=== PATIENT | female | born 1975 | race Caucasian/White ===

== ENCOUNTER → 2020-06-25 11:42 | Outpatient (CLI) | payer OTHER, SELFPAY ==
[2020-06-26 08:48] LABS: COVID19 Sendout Not Detected (Not Detect)
== END ==
PROVIDERS: PCP Family Medicine; Visit Provider Physician Assistant
DX: Z11.59 Encounter for screening for other viral diseases (principal)
CPT/HCPCS: 87635

== ENCOUNTER → 2020-06-27 08:20 | Outpatient (CLI) | payer OTHER, SELFPAY ==
--- NOTE | 2020-06-27 14:35 | PM.TREADMILL ---
Cardiac Stress Test Report Referral & Results Date Patient Seen: 06/27/20 Requesting provider: Lukasz Burgos Indication: Dyspnea Rest ECG: Biphasic T-waves throughout Procedure Note: Today following both written and verbal informed consent the patient was exercised according to a standard Librado protocol patient went for a total of 4 minutes 17 seconds achieving a maximum heart rate of 140 maximum systolic blood pressure of 136. This is approximately 7.0 METS. Exercise was terminated at this point because of patient's inability to continue. She became quite stridorous during the last 2 minutes of exercise although oxygen saturation remained at 100% on her blood pressure did not spike with this. She rapidly resolve this stridor within 30-60 seconds of exercise cessation. There is no wheezing or other feature to it. Patient was also given Cardiolite through a previously started Hep-Lock IV by the diagnostic imaging staff approximately 1 minute prior to the cessation of exercise. There is nonspecific drooping of the T-waves in the far lateral leads as well as inferior leads with exercise that I consider to be an exacerbation of the baseline biphasic T-wave change. Otherwise no ST-T segment changes no evidence of ischemia Function aerobic impairment rated 35% and sedentary scale Rare PAC in recovery only Impression: No clear evidence of ischemia. Please see perfusion imaging report for further details Patient's symptoms that she had during exercise seems extraordinarily out of proportion to objective findings such as blood pressure oxygen saturation etcetera. I would seriously consider psychological source of symptoms as a contributing factor to her overall presentation. Please note: Actual ECG tracings can be found in the PACS system.
--- NOTE | 2020-06-27 18:50 | DI.NM.S_ITS ---
DATE OF SERVICE: PROCEDURE: Exercise perfusion study. INDICATIONS: Chest pain, palpitation, shortness of breath. RADIOPHARMACEUTICAL: 26.0 millicurie technetium-99m Myoview IV was injected at stress and 14.3 millicurie technetium-99m Myoview IV was injected at rest. CARDIAC STRESS: The patient underwent exercise perfusion study under the supervision of an attending staff. She walked on Librado protocol for 4 minutes 17 seconds and became significantly dyspneic with stridor. She felt chest discomfort. On a scale of 1-10, it was 4-5 in intensity. It got resolved in recovery. Her oxygen saturation was not low. There was normal blood pressure response. The patient achieved 83 percent of target heart rate. Baseline EKG revealed sinus rhythm with biphasic T-wave in inferior leads and lead V3 to V6. During stress, the patient developed 1-[address]-depression in those leads and recovered within 2 minutes in recovery. No significant sustained arrhythmias seen. RAW DATA: Breast shadow was seen. Her weight is 210 pounds. GATED STUDY: Stress LV ejection fraction 70 percent without any obvious wall motion abnormalities. TID ratio is 0.95, which is within normal limits. Resting end-diastolic volume 109 mL. Lung/heart ratio 0.32, which is within normal limits. MYOCARDIAL PERFUSION: Stress supine, resting supine and stress prone images were compared to each other. Stress supine images revealed a small size, mildly decreased perfusion of anterior wall. Resting supine images reveal mildly decreased perfusion of distal anterior wall and anterior apex. During prone images, there was significant improvement in anterior wall and anterior apical perfusion defect. No convincing perfusion defect seen in the stress prone images. CONCLUSION: I will call this study likely a normal myocardial perfusion study with evidence of breast tissue attenuation artifact which got resolved during the stress prone images. Left ventricular function is preserved. She felt significantly dyspneic with stridor. She also had chest discomfort, which got resolved in recovery. She has poor exercise tolerance. Baseline EKG abnormalities, as stated above. No significant arrhythmias during exercise. As far as perfusion scan is concerned, this is a low-risk myocardial perfusion scan. As patient had stridor during exercise, consider complete pulmonary evaluation including upper respiratory tract evaluation. Verito Squires - Jennifer/ric doc#: [id number]/job#: [id number] dd: 06/27/2020 16:47:00 dt: 06/27/2020 18:41:00 DICTATING MD/COPIES TO: Alfredito Amador MD COPIES MNE: SUSAN;
== END ==
PROVIDERS: PCP Family Medicine; Referring Provider Family Medicine; Visit Provider Family Medicine
DX: R07.89 Other chest pain (principal); R00.2 Palpitations; R06.02 Shortness of breath; R06.00 Dyspnea, unspecified; Z87.898 Personal history of other specified conditions
CPT/HCPCS: 78452; 93016; 93017; 93018; A9502

== ENCOUNTER → 2020-09-05 10:41 | Outpatient (CLI) | payer OTHER, SELFPAY ==
--- NOTE | 2020-09-05 10:43 | DI.US.S_ITS ---
PROCEDURE: US THYROID INDICATIONS: NONTOXIC GOITER, UNSPECIFIED TECHNIQUE: Real-time scanning was performed of the thyroid gland, with image documentation. COMPARISON: None. FINDINGS: Right: Thyroid lobe measures 6.2 x 1.9 x 2.1 cm, and is diffusely heterogeneous in echotexture. Left: Thyroid lobe measures 6.1 x 3.2 x 4.4 cm, and is diffusely heterogeneous in echotexture. Isthmus: 6.0 mm thick. Nodule number: 1 Location: Right superior Size: 0.7 x 0.5 x 0.4 cm. Composition: Predominantly solid Echogenicity: Isoechoic Shape: wider than tall. Margins: Smooth Echogenic foci: None Total points: 3 ACR TI-RADS category: Mildly suspicious Nodule number: 2 Location: Right superior Size: 0.6 x 0.4 x 0.4 cm. Composition: Solid Echogenicity: Hypoechoic Shape: wider than tall. Margins: Smooth Echogenic foci: Not requested. Total points: 4 ACR TI-RADS category: Moderately suspicious Nodule number: 3 Location: Left upper Size: 1.2 x 0.8 x 1.4 cm. Composition: Solid Echogenicity: Isoechoic Shape: wider than tall. Margins: Smooth Echogenic foci: None Total points: 3 ACR TI-RADS category: Mildly suspicious Nodule number: 4 Location: Left mid to inferior Size: 4.3 x 2.8 x 3.9 cm. Composition: Predominantly solid Echogenicity: Heterogeneous Shape: wider than tall. Margins: Lobulated Echogenic foci: Internal punctate echogenic foci Total points: 7 ACR TI-RADS category: Highly suspicious IMPRESSION: Bilateral thyroid nodules. Recommend sonographically directed fine-needle aspiration involving the left #4 nodule and continued sonographic surveillance. ACR TI-RADS definitions and recommendations: TI-RADS 1 (benign): 0 points. FNA not needed. TI-RADS 2 (not suspicious): 2 points. FNA not needed. TI-RADS 3 (mildly suspicious): 3 points. * FNA if 2.5 cm or larger, follow up if 1.5 cm or larger (at 1, 3, and 5 years). TI-RADS 4 (moderately suspicious): 4-6 points. * FNA if 1.5 cm or larger, follow up if 1 cm or larger (at 1, 2, 3, and 5 years). TI-RADS 5 (highly suspicious): 7 points or more. * FNA if 1 cm or larger, follow up if 0.5 cm or larger (every year for 5 years). Dictated by: Bobby LUDWIG Interpreted: Jefry Avila MD on 09/05/2020 at 11:38 Approved by: Jefry Avila M.D. on 09/05/2020 at 13:59
== END ==
PROVIDERS: PCP Family Medicine; Referring Provider Otolaryngology; Visit Provider Otolaryngology
DX: E04.2 Nontoxic multinodular goiter (principal)
CPT/HCPCS: 76536

== ENCOUNTER → 2020-09-16 08:12 | Outpatient (CLI) | payer OTHER, SELFPAY ==
--- NOTE | 2020-09-16 | PATH_ITS ---
Note [facility] Accession Number: [id number] TESTS RESULT FLAG UNITS REF RANGE LAB Clinician Provided Cytology Information No. of containers..00 Previously Prepared Cytology Slide 35 Unknown Storage/container code(s) 01 LEFT THYROID NODULE Clinician ICD10: E04.1 R04.9 DIAGNOSIS: 01 LEFT THYROID NODULE NEGATIVE FOR MALIGNANT CELLS. B[place]ESDA CATEGORY II. SPECIMEN CONSISTS OF A HETEROGENEOUS LYMPHOID POPULATION, HURTHLE CELLS, AND FOLLICULAR CENTER FRAGMENTS. THIS PATTERN IS CONSISTENT WITH A CHRONIC LYMPHOCYTIC THYROIDITIS. COMMENT: Cutting Inspector slides of this case are also reviewed by Dr. Keli Lomax who concurs with the given interpretation. Pathologist ICD10: E06.3 01 NODULE NUMBER: 4 LOCATION: LEFT MID TO INFERIOR SIZE: 4.3 X 2.8 X 3.9 CM COMPOSITION: PREDOMINANTLY SOLID ECHOGENICITY: HETEROGENEOUS SHAPE: WIDER THAN TALL. MARGINS: LOBULATED ECHOGENIC FOCI: INTERNAL PUNCTATE ECHOGENIC FOCI TOTAL POINTS: 7 ACR TI-RADS CATEGORY: HIGHLY SUSPICIOUS 01 Casie Motta MD, Pathologist NPI- [id number] Cristian Rivera, Loan Workout Officer ([facility]) 01 30 CC, PINK, CLEAR RECIEVED: IN CYTOLYT WITH 5 ALCOHOL FIXED AND 5 QUICK STAINED SLIDES ALSO 1 RNA VIAL WAS RECEIVED FOR FURTHER TESTING. /VDU 09/17/2020 0624 Local FLAG LEGEND: L-Low Normal,H-High Normal,LL-Alert Low,HH-Alert High <-Panic Low,>-Panic High,A-Abnormal,AA-Critical Abnormal Performed at: 01 =Z [facility] [address], [place] [address] Addison Sharif MD, Performed at: 01 [facility] [address], [place], [place] [id number] MD Addison Shraif MD Phone: [phone]
--- NOTE | 2020-09-16 | DI.US.S_ITS ---
PROCEDURE: US FINE NEEDLE ASPIRATION INDICATIONS: NONTOXIC SINGLE THYROID NODULE TECHNIQUE: The indications, alternatives, benefits, risks, and complications of the procedure were explained to the patient. Written informed consent was obtained and placed in the chart. The thyroid region was examined sonographically and a site was chosen for ultrasound guided percutaneous sampling. The skin was prepared and draped in the usual fashion, and anesthetized with 1% lidocaine infiltrated from the skin down to the thyroid gland. Multiple passes were then performed, with contents emptied into an appropriate pathology specimen container. A bandage was applied to the area of access at completion of the study. COMPARISON: [facility], US, US THYROID, 09/05/2020, 10:56. FINDINGS: Location(s) of lesion(s) sampled: Left thyroid nodule [place]: 25 gauge hypodermic needles. Number of passes: 6 Medications: 1% lidocaine for local anaesthesia. Complications: None. IMPRESSION: Successful ultrasound-guided thyroid nodule fine needle aspiration, with cytology results pending. Please see chart below for management recommendations based on cytology results. [facility] ReportingRecommendationsNon-diagnostic* Repeat US-guided FNA, with on-site cytology evaluation if possible. * Repeated non-diagnostic nodules without high suspicion US features: close observation vs surgical consult. * Consider surgery if nodule has high suspicion US features, grows >20% in 2 dimensions on followup, or patient has clinical risk factors for malignancy. Benign* If nodule has high suspicion US features: repeat US and FNA within 12 months. * If nodule has low to intermediate suspicion US features: repeat US at 12-24 months. If nodule grows (20% increase in at least 2 dimensions, with minimal increase of 2 mm or >50% change in volume), or development of new suspicious US features, then repeat FNA or continue followup. * If nodule has very low suspicion US features: followup US at >24 months. Atypia of undetermined significance, follicular lesion of undetermined significanceRepeat FNA, molecular testing, followup US, or surgical consult.Follicular neoplasm, suspicious for follicular neoplasmSurgical consult; also consider molecular testing. Suspicious for malignancySurgical consult.MalignantSurgical consult. Dictated by: Margie Coker M.D. on 09/16/2020 at 9:50 Approved by: Margie Coker M.D. on 09/16/2020 at 9:51
== END ==
PROVIDERS: PCP Family Medicine; Referring Provider Otolaryngology; Visit Provider Otolaryngology
DX: E04.1 Nontoxic single thyroid nodule (principal)
CPT/HCPCS: 10005

== ENCOUNTER → 2020-09-30 11:17 | Outpatient (CLI) | payer OTHER, SELFPAY ==
[2020-09-30 12:29] LABS: Add Manual Diff / Slide Review NO; Basophils Absolute Auto 100 /uL (0-100); Basophils Percent Auto 1.3 % (0-2); Eosinophils Absolute Auto 100 /uL (0-450); Eosinophils Percent Auto 1.1 % (2-4); Hematocrit 21.3 % (36-46); Lymphocytes Absolute Auto 1000 /uL (1100-4500); Lymphocytes Percent Auto 21.3 % (25-40); Mean Corpuscular HGB Conc 28.9 % (30-36); Mean Corpuscular Hemoglobin 15.9 PG (26-34); Mean Corpuscular Volume 55.1 fL (80-100); Monocytes Absolute Auto 300 /uL (0-900); Monocytes Percent Auto 6.9 % (3-14); Neutrophils Absolute Auto 3400 /uL (1500-7000); Neutrophils Percent Auto 69.4 % (50-75); Platelet Count 352 X10^3/uL (150-400); Red Blood Cell Count 3.86 X10^6/uL (4.0-5.2); Red Cell Distribution Width 21.8 % (11.6-14.8); White Blood Cell Count 4.8 X10^3/uL (4.5-11.0)
[2020-09-30 12:38] LABS: HEMOLYSIS < 15 (0-50)
[2020-09-30 12:40] LABS: Hemoglobin 6.2 g/dL (12.0-16.0); Iron < 10 ug/dL (37-170)
[2020-09-30 12:42] LABS: Alanine Aminotransferase 9 IU/L (<35); Albumin 4.3 g/dL (3.5-5.0); Albumin Globulin Ratio 1.3 (1.0-2.8); Alkaline Phosphatase 85 U/L (38-126); Aspartate Aminotransferase 17 IU/L (14-36); BUN Creatinine Ratio 14.9 (6-22); Bilirubin Total 0.2 mg/dL (0.2-1.3); Blood Urea Nitrogen 10 mg/dL (7-17); Calcium 9.1 mg/dL (8.4-10.2); Carbon Dioxide 23 mmol/L (22-32); Chloride 106 mmol/L (98-107); Cholesterol 201 mg/dL (140-199); Estimated Glomerular Filt Rate > 60.0 mL/min (>60); Globulin 3.3 g/dL (1.7-4.1); Glucose 100 mg/dL (70-100); HDL Cholesterol 47 mg/dL (40-60); HEMOLYSIS < 15 (0-50); LDL Cholesterol Calculated 139 mg/dL (<100); Potassium 3.9 mmol/L (3.4-5.1); Sodium 136 mmol/L (137-145); Total Protein 7.6 g/dL (6.3-8.2); Triglycerides 76 mg/dL (35-150)
[2020-09-30 12:43] LABS: Erythrocyte Sedimentation Rate 43 MM/HR (0-20)
[2020-09-30 12:48] LABS: Anisocytosis 2+; Hypochromasia 2+
[2020-09-30 12:49] LABS: Percent Iron Saturation 2 % (15-50); Total Iron Binding Capacity 413 ug/dL (265-497); Transferrin 325 mg/dL (206-381)
[2020-09-30 12:55] LABS: Free T3, Triiodothyronine Free 4.18 pg/mL (2.77-5.27); Free T4, Direct Thyroxine 1.37 ng/dL (0.78-2.19)
[2020-09-30 13:09] LABS: Thyroid Stimulating Hormone 0.945 uIU/mL (0.47-4.68)
[2020-09-30 13:27] LABS: Vitamin B12 533 pg/mL (239-931)
[2020-09-30 14:54] LABS: Vitamin D 25 Hydroxy (D3) 28.1 ng/mL (30.0-100.0)
== END ==
PROVIDERS: PCP Family Medicine; Referring Provider Family Medicine; Visit Provider Family Medicine
DX: D50.9 Iron deficiency anemia, unspecified (principal); E06.3 Autoimmune thyroiditis; E78.5 Hyperlipidemia, unspecified; Z13.21 Encounter for screening for nutritional disorder
CPT/HCPCS: 36415; 80053; 80061; 82306; 82607; 83540; 83550; 84439; 84443; 84481; 85025; 85651

== ENCOUNTER 2020-10-08 11:30 | Outpatient (RCR) | payer OTHER, SELFPAY ==
--- NOTE | 2020-08-07 16:52 | ST.OPPOC ---
Physical, Occupational & Speech Therapy At [facility] Visit Care Team Role Provider Type Lukasz Burgos DO Primary Care Provider Physician Address: [address] [place] [address], [id number] Dilip Morrison MD Attending Provider Physician Referring Provider Address: [address] [place] [address], [id number] Speech Pathology Plan of Care General Information Pt was referred for voice therapy by Dr. Morrison, ENT because she has difficulty breathing during exercise. 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 She first noted that she couldn't breath during a running event about 1 year ago. She describes a pain in lower throat near sternal notch similar to when you try not to cry. She demonstrated an inhalation stridor when these attacks occur. She added that she feels like she is going to suffocate. As soon as she stops exercising, her breathing returns to normal. 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 Clinic Office Coordinator Goals Pt will report a reduction in the frequency of PVFM attacks during increased activity. pt will report successful use of breathing strategies taught to reduce/eliminate PVFM attacks Electronically Signed by: KELLY Wheatley 08/07/20 [id number] Please Sign and Return: I have reviewed this Plan of Care and certify that the skilled therapy services above are required to meet the patient?s needs. Physician Signature Date Printed Name and Credentials Clinical Instructor Signature Printed Name and Credentials
--- NOTE | 2020-08-07 16:53 | ST.OPIE ---
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 Morrison Setting Setting Outpatient Care Patient History General Information Pt was referred for voice therapy by Dr. Morrison, ENT because she has difficulty breathing during exercise. 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 She first noted that she couldn't breath during a running event about 1 year ago. She describes a pain in lower throat near sternal notch similar to when you try not to cry. She demonstrated an inhalation stridor when these attacks occur. She added that she feels like she is going to suffocate. As soon as she stops exercising, her breathing returns to normal. 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 Occupational Status Occupation Status Works at home Subjective Subjective Pt presented with a soft, hoarse voice. She described hervoice as typical for her. - Laryngeal Performance Muscle Tension Assessment Muscle Tension Assessment Neck,Shoulders Breath Support Breath Support At Rest Clavicular,Mixed Breath Support Conversation Clavicular,Mixed Speaks on Room Air Yes Postural Alignment Stance Balanced Voice Pitch Range Norms: Women (100-300 Hz) Men (70-250 Hz) Fundamental Frequency Norms: Women (Mean: 225 Hz; Range: 155-334 Hz) Men ( Mean: 128 Hz; Range: 85-196 Hz) Voice Loudness Mildly Soft/Quiet Voice Phonatory-based Quality Hoarse Paradoxical Vocal Fold Movement Voice breaks were noted Indications infrequently. Resonance Other Observations Throat Clearing Therapeutic Techniques Therapy Tactics Breath Support Other Tactics The pt provided her history relative to her PVFM. After discussion of her symptoms, pt performed breathing tasks designed to elicit tightness in the throat: 1) alternating /i/-sniff, 2) rapid in-out breathing, cough, throat-clear and deep breath and 3) running in place. The only task that elicited tightness and difficulty was running in place. A PVFM clinical worksheet from the [facility] was completed. The worksheet is a checklist of symptoms. Based on the asnswers of the pt, a total is taken for different possible etiologies: LPR, Respiratory laryngeal dystonia, Asthma associated, Brainstem abnormalities and Drug induced laryngeal dystonia. The pt's responses were highest foa an LPR etiology. The pt reported that she has heartburn, but doesn't take anything for it. Findings Findings Moderate Impairment Voice/Resonance Assessment Assessment The pt presented with probable PVFM-exercise induced. She responded to running in place with increased tightness in her throat and a sense of panic. Abdominal breathing and focus on drawing her air into the bottom of her lungs ( i.e., filling a bucket with air from the bottom up). After a few minutes, she was breathing normally. Pt has a history of untreated GERD. Based on the PVFM worksheet from the [facility], LPR appears to be etiologically related to her PVFM, and may be exacerbated by aerobic exercise. Prognosis Rehabilitation Potential Excellent - Recommendations Treatment Recommended Yes Treatment Frequency/Duration weekly x 6 weeks Therapy Recommendations Relaxed throat breathing exercises Relaxation/breathing techniques taught to use during an attack Short Term Goals Pt will demonstrate abdominal breathing in an upright position during conversation. Pt will be able to visualize open throat to facilitate maximum abduction during breathing tasks. Nursing Home Goals Pt will report a reduction in the frequency of PVFM attacks during increased activity. pt will report successful use of breathing strategies taught to reduce/eliminate PVFM attacks Patient/Caregiver Education Patient/Family Education Described results of evaluation,Patient Understanding
--- NOTE | 2020-08-11 15:32 | ST.IPTN ---
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 Morrison, ENT because she has difficulty breathing during exercise. 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 She first noted that she couldn't breath during a running event about 1 year ago. She describes a pain in lower throat near sternal notch similar to when you try not to cry. She demonstrated an inhalation stridor when these attacks occur. 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 She responded to running in place with increased tightness in her throat and a sense of panic. 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 Pt will be able to visualize open throat to facilitate maximum abduction during breathing tasks Senior Care Goals Pt will report a reduction in the frequency of PVFM attacks during increased activity. pt will report successful use of breathing strategies taught to reduce/eliminate PVFM attacks [ End ] Treatment Activities Reviewed abdominal breathing. Instructed pt in the anatomy and physiology of breathing. Discussed the role anxiety plays in PVFM triggers. Pt is c/o of a sore throat throat today thinks it may be related to GERD. Discussed ways pt can use positive self-talk to ease anxiety over losing her breath and not being able to breathe. Climbed stairs near entrance to the clinic x3. Last climb was longest. Pt reported that she felt like normal, no tightening. Pt has stairs at home. HEP to practice abdominal breath work, positive self talk and if need be, to sniff-/i/ x5. pt was feeling good about the session when she left. 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 She was trying too hard to incorporate everything in a hike yesterday. Discussed the need to go 1 step at a time. She agreed. Reviewed with Patient Goals,Home Exercise Program Patient/Caregiver Understanding Excellent Plan Amount of Therapy Recommended 2-3 Months Frequency of Treatment Once a Week Length of Session 45 Minutes Provided Patient/Caregiver Instruction Home Exercise Program, Questions/Concerns Therapy Recommendations Continue with Current Program
--- NOTE | 2020-09-09 12:12 | ST.OPTN ---
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 Morrison, ENT because she has difficulty breathing during exercise. 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 She first noted that she couldn't breath during a running event about 1 year ago. She describes a pain in lower throat near sternal notch similar to when you try not to cry. She demonstrated an inhalation stridor when these attacks occur. 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 She responded to running in place with increased tightness in her throat and a sense of panic. 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 Pt will be able to visualize open throat to facilitate maximum abduction during breathing tasks Assisted Goals Pt will report a reduction in the frequency of PVFM attacks during increased activity. pt will report successful use of breathing strategies taught to reduce/eliminate PVFM attacks [ End ] Treatment Activities Reviewed abdominal breathing, anatomy and physiology of breathing and the role stress plays in PVFM triggers. Pt reported that she feels that her breathing and PVFM episodes are under control. She has not had an episode since last visit. She did c/o dizziness with a hollow sensation in her left ear along with tinitis. She is scheduled to see Dr. Morrison this week and was encouraged to bring these new symptoms to her attention. Reviewed self -talk to ease anxiety/stress. Will f/u in 1 month Assessment Patient Response to Treatment Excellent Rehab Potential Excellent Impairments Identified Other Progress Towards Goals Good Progress Assessment of Improvement Pt reports improved breathing with no PVFM episodes since last visit. Reviewed with Patient Goals,Home Exercise Program Patient/Caregiver Understanding Excellent Plan Amount of Therapy Recommended 2-3 Months Frequency of Treatment Once a Week Length of Session 45 Minutes Provided Patient/Caregiver Instruction Home Exercise Program, Questions/Concerns Therapy Recommendations Continue with Current Program
--- NOTE | 2020-10-08 11:50 | ST.OPTN ---
Visit Care Team Role Provider Type Lukasz Burgos DO Primary Care Provider Physician Address: [address] [place] [address], [id number] Dilip Morrison MD Attending Provider Physician Referring Provider Address: [address] [place] [address], [id number] CRIME ANALYST Treatment Note CRIME ANALYST Treatment Note Start: 08/07/20 11:31 Freq: Status: Active Protocol: Document 10/08/20 11:31 LNK (Rec: 10/08/20 11:50 LNK [id number]) Speech Pathology Treatment Note Session Time Visit Start Time 11:30 Visit Stop Time 11:45 Total Visit Minutes 15 Visit Information Visit Number 4 Plan of Care Dates 08/07/20-12/07/20 Setting Treatment Setting Outpatient Care Visit Type Note Type Treatment Note Next Note Type Next Note Type Treatment Note General Information General Information Pt was referred for voice therapy by Dr. Morrison, ENT because she has difficulty breathing during exercise. 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 She first noted that she couldn't breath during a running event about 1 year ago. She describes a pain in lower throat near sternal notch similar to when you try not to cry. She demonstrated an inhalation stridor when these attacks occur. 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 She responded to running in place with increased tightness in her throat and a sense of panic. 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 pt will report successful use of breathing strategies taught to reduce/eliminate PVFM attacks [ End ] Treatment Activities Reviewed abdominal breathing, anatomy and physiology of breathing and the role stress plays in PVFM triggers. Pt reported that she feels that her breathing and PVFM episodes are under control. She has not had an episode since last visit. She did c/o dizziness with a hollow sensation in her left ear along with tinitis. She is scheduled to see Dr. Morrison this week and was encouraged to bring these new symptoms to her attention. pt has not been seen for 24 days. Pt reported that she is doing much better. She reported that following her last appointment she has beed diagnosed with Ruben's disease and that she has 4 nodes on her thyroid; one of them was as big as a golf ball , she reported. Additionally she wsas found to be severely anemic requiring blood transfusion. Since she has been treated fro these 2 diagnoses, her breathing has improved, her overall stress has reduced and she has had no PVFM episodes. Will D/C Assessment Patient Response to Treatment Excellent Rehab Potential Excellent Impairments Identified Other Progress Towards Goals Good Progress,Appropriate for Discharge Patient/Caregiver Understanding Excellent Plan Amount of Therapy Recommended No Further Therapy Frequency of Treatment No Further Therapy Therapy Recommendations Discharge from Speech Therapy
--- NOTE | 2020-10-08 11:56 | ST.OPDS ---
Visit Care Team Role Provider Type Lukasz Burgos DO Primary Care Provider Physician Address: [address] [place] [address], [id number] Dilip Morrison MD Attending Provider Physician Referring Provider Address: [address] [place] [address], [id number] TORPEDO WORKER Treatment Note TORPEDO WORKER Treatment Note Start: 08/07/20 11:31 Freq: Status: Active Protocol: Document 10/08/20 11:31 LNK (Rec: 10/08/20 11:50 LNK [id number]) Speech Pathology Treatment Note Session Time Visit Start Time 11:30 Visit Stop Time 11:45 Total Visit Minutes 15 Visit Information Visit Number 4 Plan of Care Dates 08/07/20-12/07/20 Setting Treatment Setting Outpatient Care Visit Type Note Type Discharge Summary General Information General Information Pt was referred for voice therapy by Dr. Morrison, ENT because she has difficulty breathing during exercise. 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 She first noted that she couldn't breath during a running event about 1 year ago. She describes a pain in lower throat near sternal notch similar to when you try not to cry. She demonstrated an inhalation stridor when these attacks occur. 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 She responded to running in place with increased tightness in her throat and a sense of panic. 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 pt will report successful use of breathing strategies taught to reduce/eliminate PVFM attacks [ End ] Treatment Activities Reviewed abdominal breathing, anatomy and physiology of breathing and the role stress plays in PVFM triggers. Pt reported that she feels that her breathing and PVFM episodes are under control. She has not had an episode since last visit. She did c/o dizziness with a hollow sensation in her left ear along with tinnitus. She is scheduled to see Dr. Morrison this week and was encouraged to bring these new symptoms to her attention. Pt has not been seen for 24 days. Pt reported that she is doing much better. She reported that following her last appointment she has been diagnosed with Ruben's disease and that she has 4 nodes on her thyroid; one of them was as big as a golf ball , she reported. Additionally she was found to be severely anemic requiring blood transfusion. Since she has been treated fro these 2 diagnoses, her breathing has improved, her overall stress has reduced and she has had no PVFM episodes. Will D/C Assessment Patient Response to Treatment Excellent Rehab Potential Excellent Impairments Identified Other Progress Towards Goals Good Progress,Appropriate for Discharge Patient/Caregiver Understanding Excellent Plan Amount of Therapy Recommended No Further Therapy Frequency of Treatment No Further Therapy Therapy Recommendations Discharge from Speech Therapy
== END 2020-10-09 08:04 ==
LOC: SP 11:30
PROVIDERS: PCP Family Medicine; Referring Provider Otolaryngology; Visit Provider Otolaryngology
DX: J38.3 Other diseases of vocal cords (principal)
CPT/HCPCS: 92507; 92524

== ENCOUNTER → 2020-10-14 08:01 | Outpatient (CLI) | payer OTHER, SELFPAY ==
[2020-10-14 08:35] LABS: Add Manual Diff / Slide Review NO; Basophils Absolute Auto 100 /uL (0-100); Basophils Percent Auto 1.5 % (0-2); Eosinophils Absolute Auto 100 /uL (0-450); Eosinophils Percent Auto 2.2 % (2-4); Hemoglobin 9.6 g/dL (12.0-16.0); Lymphocytes Absolute Auto 900 /uL (1100-4500); Lymphocytes Percent Auto 19.7 % (25-40); Mean Corpuscular HGB Conc 31.1 % (30-36); Mean Corpuscular Hemoglobin 20.6 PG (26-34); Mean Corpuscular Volume 66.2 fL (80-100); Monocytes Absolute Auto 300 /uL (0-900); Monocytes Percent Auto 6.2 % (3-14); Neutrophils Absolute Auto 3000 /uL (1500-7000); Neutrophils Percent Auto 70.4 % (50-75); Platelet Count 343 X10^3/uL (150-400); Red Blood Cell Count 4.68 X10^6/uL (4.0-5.2); Red Cell Distribution Width 34.7 % (11.6-14.8); White Blood Cell Count 4.3 X10^3/uL (4.5-11.0)
[2020-10-14 09:28] LABS: Thyroid Stimulating Hormone 0.626 uIU/mL (0.47-4.68)
[2020-10-14 09:31] LABS: Anisocytosis 3+; Hypochromasia 2+; Microcytosis 1+
[2020-10-14 09:32] LABS: Poikilocytosis 1+
[2020-10-15 15:08] LABS: t-Transglutaminase IgA <2 U/mL (0-3)
== END ==
PROVIDERS: PCP Family Medicine; Referring Provider Family Medicine; Visit Provider Family Medicine
DX: D64.9 Anemia, unspecified (principal); K90.41 Non-celiac gluten sensitivity; E06.3 Autoimmune thyroiditis
CPT/HCPCS: 36415; 83516; 84439; 84443; 84481; 85025; 86850; 86900; 86901

== ENCOUNTER → 2020-11-26 12:05 | Outpatient (CLI) | payer OTHER, SELFPAY | PROVIDERS: PCP Family Medicine; Referring Provider Obstetrics & Gynecology; Visit Provider Obstetrics & Gynecology | DX: D25.9 Leiomyoma of uterus, unspecified (principal); Z53.20 Procedure and treatment not carried out because of patient's decision for unspecified reasons ==

== ENCOUNTER → 2020-11-26 13:30 | Oncology outpatient (ONC) | payer OTHER, SELFPAY ==
[2020-10-01 10:36] VITALS: BP 124/73; PULSE 72; RESP 16; TEMP 36.6
[2020-10-01 10:54] VITALS: BP 125/67; PULSE 72; RESP 16; TEMP 36.7
[2020-10-01 13:21] VITALS: BP 120/63; PULSE 85; RESP 16; TEMP 37.1
[2020-10-01 13:48] VITALS: BP 120/63; PULSE 85; RESP 16; TEMP 37.2
[2020-10-01 14:04] VITALS: BP 117/60; PULSE 71; RESP 16; TEMP 36.3
[2020-10-01 16:10] VITALS: BP 128/75; PULSE 75; RESP 16; TEMP 37.1
[2020-10-29] MEDS: IRON SUCROSE 200 MG in SODIUM CHLORIDE 0.9% 100 ML 220 ML IV (13:52)
[2020-11-05] MEDS: IRON SUCROSE 200 MG in SODIUM CHLORIDE 0.9% 100 ML 220 ML IV (13:33)
[2020-11-05 13:36] VITALS: BP 137/78; PULSE 85; RESP 18; TEMP 36.4; O2SAT 97
[2020-11-12 13:44] VITALS: BP 144/81; PULSE 93; RESP 15; TEMP 37; O2SAT 99
[2020-11-12] MEDS: IRON SUCROSE 200 MG in SODIUM CHLORIDE 0.9% 100 ML 220 ML IV (13:54)
[2020-11-19] MEDS: IRON SUCROSE 200 MG in SODIUM CHLORIDE 0.9% 100 ML 220 ML IV (13:54)
[2020-11-19 13:58] VITALS: BP 121/79; PULSE 74; RESP 15; TEMP 37
[2020-11-26 13:21] VITALS: BP 117/75; PULSE 64; RESP 16; TEMP 36.9; O2SAT 100
[2020-11-26] MEDS: IRON SUCROSE 200 MG in SODIUM CHLORIDE 0.9% 100 ML 220 ML IV (13:25)
== END ==
PROVIDERS: PCP Family Medicine; Referring Provider Family Medicine; Visit Provider Family Medicine
DX: D50.9 Iron deficiency anemia, unspecified (principal)
CPT/HCPCS: 36415; 36430; 86850; 86900; 86901; 96365; P9016; J1756

== ENCOUNTER → 2020-12-08 10:30 | Outpatient (CLI) | payer OTHER, SELFPAY ==
--- NOTE | 2020-12-08 10:32 | DI.US.S_ITS ---
PROCEDURE: US PELVIC COMPLETE INDICATIONS: FIBROIDS TECHNIQUE: Real-time scanning was performed of the pelvic organs, with image documentation. Additional endovaginal scanning was necessary due to incomplete visualization of the adnexal and endometrial structures by transabdominal scanning. COMPARISON: [facility], US, US PELVIC COMPLETE, 11/10/2020, 11:58. FINDINGS: Uterus: Anteverted uterus is normal in size at 14.6 x 7.3 x 11.0 cm. The endometrium measures 9-10 mm in combined thickness. Midline submucosal fibroid measuring 4.3 x 3.4 x 5.3 cm. Additional large right-sided fibroid measures 6.8 x 4.3 x 5.6 cm Ovaries: Right ovary measures 3.8 x 3.2 x 3.0 cm, and the left ovary measures 3.7 x 2.5 x 3.8 cm. Simple appearing cyst measuring 3.3 x 2.1 x 3.4 cm involving the left ovary. There is a probable simple appearing cyst measuring 2.9 x 2.6 x 2.7 cm although not well seen secondary to position and body habitus Other: No pathologic free abdominal or pelvic fluid. IMPRESSION: Multiple uterine fibroids Bilateral simple appearing ovarian cysts versus physiologic follicles Dictated by: Jarred Chen M.D. on 12/08/2020 at 15:57 Approved by: Jarred Chen M.D. on 12/08/2020 at 16:02
[2020-12-08 11:51] LABS: Add Manual Diff / Slide Review NO; Basophils Absolute Auto 100 /uL (0-100); Basophils Percent Auto 1.2 % (0-2); Eosinophils Absolute Auto 0 /uL (0-450); Eosinophils Percent Auto 0.7 % (2-4); Hematocrit 36.8 % (36-46); Hemoglobin 12.1 g/dL (12.0-16.0); Lymphocytes Absolute Auto 1300 /uL (1100-4500); Lymphocytes Percent Auto 21.2 % (25-40); Mean Corpuscular Hemoglobin 25.6 PG (26-34); Mean Corpuscular Volume 77.7 fL (80-100); Monocytes Absolute Auto 400 /uL (0-900); Monocytes Percent Auto 5.7 % (3-14); Neutrophils Absolute Auto 4500 /uL (1500-7000); Neutrophils Percent Auto 71.2 % (50-75); Platelet Count 253 X10^3/uL (150-400); Red Blood Cell Count 4.74 X10^6/uL (4.0-5.2); White Blood Cell Count 6.3 X10^3/uL (4.5-11.0)
[2020-12-08 12:01] LABS: HEMOLYSIS < 15 (0-50); Iron 54 ug/dL (37-170)
[2020-12-08 12:10] LABS: Anisocytosis 2+
[2020-12-08 12:12] LABS: Percent Iron Saturation 18 % (15-50); Total Iron Binding Capacity 304 ug/dL (265-497); Transferrin 216 mg/dL (206-381)
== END ==
PROVIDERS: PCP Family Medicine; Referring Provider Obstetrics & Gynecology; Visit Provider Obstetrics & Gynecology
DX: N92.0 Excessive and frequent menstruation with regular cycle (principal); D25.0 Submucous leiomyoma of uterus; D50.9 Iron deficiency anemia, unspecified; E78.5 Hyperlipidemia, unspecified
CPT/HCPCS: 36415; 76830; 76856; 83540; 83550; 85025

== ENCOUNTER → 2021-03-13 14:57 | Outpatient (CLI) | payer OTHER, SELFPAY ==
[2021-03-13 15:37] LABS: Add Manual Diff / Slide Review NO; Basophils Absolute Auto 0 /uL (0-100); Basophils Percent Auto 0.6 % (0-2); Eosinophils Absolute Auto 200 /uL (0-450); Eosinophils Percent Auto 2.6 % (2-4); Hematocrit 39.8 % (36-46); Hemoglobin 13.1 g/dL (12.0-16.0); Lymphocytes Absolute Auto 1400 /uL (1100-4500); Lymphocytes Percent Auto 16.9 % (25-40); Mean Corpuscular Hemoglobin 27.7 PG (26-34); Mean Corpuscular Volume 84.2 fL (80-100); Monocytes Absolute Auto 500 /uL (0-900); Monocytes Percent Auto 5.7 % (3-14); Neutrophils Absolute Auto 6200 /uL (1500-7000); Neutrophils Percent Auto 74.2 % (50-75); Platelet Count 258 X10^3/uL (150-400); Red Blood Cell Count 4.73 X10^6/uL (4.0-5.2); Red Cell Distribution Width 15.3 % (11.6-14.8); White Blood Cell Count 8.4 X10^3/uL (4.5-11.0)
[2021-03-13 15:57] LABS: HEMOLYSIS < 15 (0-50); Iron 142 ug/dL (37-170)
[2021-03-13 16:07] LABS: Percent Iron Saturation 45 % (15-50); Total Iron Binding Capacity 316 ug/dL (265-497); Transferrin 260 mg/dL (206-381)
== END ==
PROVIDERS: PCP Family Medicine; Referring Provider Family Medicine; Visit Provider Family Medicine
DX: D50.9 Iron deficiency anemia, unspecified (principal); N92.0 Excessive and frequent menstruation with regular cycle
CPT/HCPCS: 36415; 83540; 83550; 85025

== ENCOUNTER → 2021-09-16 09:00 | Outpatient (CLI) | payer BC, SELFPAY ==
[2021-09-16 10:58] LABS: Free T3, Triiodothyronine Free 3.64 pg/mL (2.77-5.27); Free T4, Direct Thyroxine 1.29 ng/dL (0.78-2.19)
[2021-09-16 11:11] LABS: Thyroid Stimulating Hormone 0.718 uIU/mL (0.47-4.68)
== END ==
PROVIDERS: PCP Family Medicine; Referring Provider Family Medicine; Visit Provider Family Medicine
DX: D50.9 Iron deficiency anemia, unspecified (principal); E78.5 Hyperlipidemia, unspecified
CPT/HCPCS: 36415; 84439; 84443; 84481

== ENCOUNTER → 2022-01-18 12:03 | Outpatient (CLI) | payer BC, SELFPAY ==
[2022-01-18 12:28] LABS: Add Manual Diff / Slide Review NO; Basophils Absolute Auto 100 /uL (0-100); Basophils Percent Auto 0.6 % (0-2); Eosinophils Absolute Auto 100 /uL (0-450); Eosinophils Percent Auto 1.3 % (2-4); Hematocrit 39.2 % (36-46); Lymphocytes Absolute Auto 1300 /uL (1100-4500); Lymphocytes Percent Auto 15.8 % (25-40); Mean Corpuscular HGB Conc 33.1 % (30-36); Mean Corpuscular Hemoglobin 27.6 PG (26-34); Mean Corpuscular Volume 83.3 fL (80-100); Monocytes Absolute Auto 500 /uL (0-900); Monocytes Percent Auto 6.4 % (3-14); Neutrophils Absolute Auto 6100 /uL (1500-7000); Neutrophils Percent Auto 75.9 % (50-75); Platelet Count 274 X10^3/uL (150-400); Red Blood Cell Count 4.71 X10^6/uL (4.0-5.2); Red Cell Distribution Width 13.7 % (11.6-14.8)
[2022-01-18 13:17] LABS: Free T3, Triiodothyronine Free 3.56 pg/mL (2.77-5.27)
[2022-01-18 13:31] LABS: Thyroid Stimulating Hormone 0.911 uIU/mL (0.47-4.68)
== END ==
PROVIDERS: PCP Family Medicine; Referring Provider Obstetrics & Gynecology; Visit Provider Obstetrics & Gynecology
DX: D50.9 Iron deficiency anemia, unspecified (principal); N92.0 Excessive and frequent menstruation with regular cycle
CPT/HCPCS: 36415; 84439; 84443; 84481; 85025

== ENCOUNTER → 2023-01-31 15:46 | Outpatient (CLI) | payer BC, SELFPAY ==
[2023-01-31 16:43] LABS: Free T4, Direct Thyroxine 1.39 ng/dL (0.78-2.19)
== END ==
PROVIDERS: PCP Family Medicine; Referring Provider Family Medicine; Visit Provider Family Medicine
DX: E04.9 Nontoxic goiter, unspecified (principal)
CPT/HCPCS: 36415; 84439; 84443; 84481

== ENCOUNTER → 2024-06-08 09:18 | Outpatient (CLI) | payer BC, SELFPAY ==
[2024-06-08 10:06] LABS: Add Manual Diff / Slide Review NO; Basophils Absolute Auto 0 /uL (0-100); Basophils Percent Auto 0.9 % (0-2); Eosinophils Absolute Auto 100 /uL (0-450); Eosinophils Percent Auto 2.1 % (2-4); Hematocrit 35.2 % (36-46); Hemoglobin 11.5 g/dL (12.0-16.0); Lymphocytes Absolute Auto 1300 /uL (1100-4500); Lymphocytes Percent Auto 26.2 % (25-40); Mean Corpuscular HGB Conc 32.5 % (30-36); Mean Corpuscular Hemoglobin 24.2 PG (26-34); Mean Corpuscular Volume 74.4 fL (80-100); Monocytes Absolute Auto 400 /uL (0-900); Monocytes Percent Auto 7.1 % (3-14); Neutrophils Absolute Auto 3200 /uL (1500-7000); Neutrophils Percent Auto 63.7 % (50-75); Platelet Count 310 X10^3/uL (150-400); Red Blood Cell Count 4.73 X10^6/uL (4.0-5.2); Red Cell Distribution Width 16.8 % (11.6-14.8)
[2024-06-08 10:56] LABS: Alanine Aminotransferase 15 IU/L (<35); Albumin 4.2 g/dL (3.5-5.0); Albumin Globulin Ratio 1.4 (1.0-2.8); Alkaline Phosphatase 102 U/L (38-126); Aspartate Aminotransferase 22 IU/L (14-36); BUN Creatinine Ratio 14.6 (6-22); Bilirubin Total 0.6 mg/dL (0.2-1.3); Blood Urea Nitrogen 12 mg/dL (7-17); Calcium 9.2 mg/dL (8.4-10.2); Carbon Dioxide 23 mmol/L (22-32); Chloride 105 mmol/L (98-107); Cholesterol 268 mg/dL (140-199); Estimated Glomerular Filt Rate > 60 mL/min (>60); Glucose 98 mg/dL (70-100); HDL Cholesterol 77 mg/dL (40-60); HEMOLYSIS < 15 (0-50); LDL Cholesterol Calculated 178 mg/dL (<100); Potassium 4.2 mmol/L (3.4-5.1); Sodium 136 mmol/L (137-145); Total Protein 7.2 g/dL (6.3-8.2); Triglycerides 65 mg/dL (35-150)
[2024-06-08 11:00] LABS: TSH w/ Reflex to FT4 0.82 uIU/mL (0.47-4.68)
== END ==
LOC: LAB 09:20
PROVIDERS: PCP Family Medicine; Referring Provider Family Medicine; Visit Provider Family Medicine
DX: E04.9 Nontoxic goiter, unspecified (principal); E78.5 Hyperlipidemia, unspecified; D50.9 Iron deficiency anemia, unspecified
CPT/HCPCS: 36415; 80053; 80061; 84443; 85025

== ENCOUNTER → 2024-08-06 15:10 | Outpatient (CLI) | payer BC, SELFPAY ==
--- NOTE | 2024-08-06 15:11 | DI.US.S_ITS ---
PROCEDURE: US THYROID INDICATIONS: enlarged thyroid TECHNIQUE: Real-time scanning was performed of the thyroid gland, with image documentation. COMPARISON: [facility], US, US THYROID, 09/05/2020, 10:56. FINDINGS: Thyroid: Right lobe measures 5.9 x 2.1 x 1.7 cm. Left lobe measures 6.1 x 3.0 x 3.0 cm. Isthmus is 0.7 cm thick. Echotexture is heterogenous. Nodule number: 1 (previously marked as #3 on the 09/05/2020 thyroid ultrasound) Location: Left superior midpole Size: 2.1 x 1.2 x 1.4 cm (previously 1.2 x 0.8 x 1.4 cm). Composition: Solid Echogenicity: Isoechoic Shape: wider than tall. Margins: Smooth Echogenic foci: None Total points: 3 ACR TI-RADS category: TR 3 Nodule number: 2 (previously marked as #4 on the 09/05/2020 thyroid ultrasound and biopsied on 09/16/2020) Location: Left lower pole Size: 4.7 x 3.1 x 3.2 cm (previously 4.3 x 2.8 x 3.9 cm). Composition: Solid Echogenicity: Hypoechoic Shape: wider than tall. Margins: Stenosis Echogenic foci: Punctate and macro calcifications Total points: 7 ACR TI-RADS category: TR 5 IMPRESSION: 1. Thyroid goiter. 2. Mildly suspicious 2.1 cm left superior midpole nodule. Follow-up thyroid ultrasound in 1 year. 3. Highly suspicious 4.7 cm left lower pole nodule. Please correlate these findings in the context of available FNA resolves, prior to consideration of a repeat biopsy. ACR TI-RADS definitions and recommendations: TI-RADS 1 (benign): 0 points. FNA not needed. TI-RADS 2 (not suspicious): 2 points. FNA not needed. TI-RADS 3 (mildly suspicious): 3 points. * FNA if 2.5 cm or larger, follow up if 1.5 cm or larger (at 1, 3, and 5 years). TI-RADS 4 (moderately suspicious): 4-6 points. * FNA if 1.5 cm or larger, follow up if 1 cm or larger (at 1, 2, 3, and 5 years). TI-RADS 5 (highly suspicious): 7 points or more. * FNA if 1 cm or larger, follow up if 0.5 cm or larger (every year for 5 years). Dictated by: Boby Lara M.D. on 08/07/2024 at 10:11 Approved by: Boby Lara M.D. on 08/07/2024 at 10:17
[2024-08-08 17:08] LABS: Fecal Immunochemical Test Negative (Negative)
== END ==
LOC: US 15:10
PROVIDERS: PCP Family Medicine; Referring Provider Family Medicine; Visit Provider Family Medicine
DX: Z00.00 Encounter for general adult medical examination without abnormal findings (principal); E04.2 Nontoxic multinodular goiter
CPT/HCPCS: 76536; 82274

== ENCOUNTER → 2024-10-06 10:37 | Outpatient (CLI) | payer BC, SELFPAY ==
[2024-10-06 11:15] LABS: Hematocrit 41.9 % (36-46); Mean Corpuscular HGB Conc 33.5 % (30-36); Mean Corpuscular Hemoglobin 27.4 PG (26-34); Mean Corpuscular Volume 81.8 fL (80-100); Platelet Count 254 X10^3/uL (150-400); Red Blood Cell Count 5.13 X10^6/uL (4.0-5.2); Red Cell Distribution Width 19.6 % (11.6-14.8); White Blood Cell Count 7.4 X10^3/uL (4.5-11.0)
[2024-10-06 11:26] LABS: HEMOLYSIS < 15 (0-50); Iron 155 ug/dL (37-170)
[2024-10-06 11:27] LABS: Uric Acid 4.7 mg/dL (2.5-6.2)
[2024-10-06 11:39] LABS: Percent Iron Saturation 53 % (15-50); Total Iron Binding Capacity 295 ug/dL (265-497); Transferrin 267 mg/dL (206-381)
== END ==
PROVIDERS: PCP Family Medicine; Referring Provider Family Medicine; Visit Provider Family Medicine
DX: M25.50 Pain in unspecified joint (principal); N92.0 Excessive and frequent menstruation with regular cycle; E78.5 Hyperlipidemia, unspecified; D50.9 Iron deficiency anemia, unspecified
CPT/HCPCS: 36415; 83540; 83550; 84550; 85027

== ENCOUNTER → 2024-11-07 09:30 | Outpatient (CLI) | payer BC, SELFPAY ==
[2024-11-07 10:24] LABS: Cholesterol 163 mg/dL (140-199); HDL Cholesterol 61 mg/dL (40-60); LDL Cholesterol Calculated 83 mg/dL (<100); Triglycerides 93 mg/dL (35-150)
== END ==
PROVIDERS: PCP Family Medicine; Referring Provider Family Medicine; Visit Provider Family Medicine
DX: E78.5 Hyperlipidemia, unspecified (principal); D50.9 Iron deficiency anemia, unspecified
CPT/HCPCS: 36415; 80061

== ENCOUNTER → 2024-11-21 13:26 | Outpatient (CLI) | payer BC, SELFPAY ==
--- NOTE | 2024-11-21 13:27 | DI.US.S_ITS ---
PROCEDURE: US EXTREMITY NONVASC LOWER LT INDICATIONS: LUMP INFERIOR TO KNEE TECHNIQUE: Real-time scanning was performed of the left lower leg, with image documentation. COMPARISON: None. FINDINGS: At the patient indicated palpable area of concern at the superior medial lower leg, no significant sonographic abnormality is seen. IMPRESSION: No sonographic abnormality. If there is continued clinical concern, MRI or CT could be performed for further evaluation. Approved by: Kayode Evans M.D. on 11/21/2024 at 15:08
== END ==
LOC: US 13:26
PROVIDERS: PCP Family Medicine; Referring Provider Family Medicine; Visit Provider Family Medicine
DX: R22.42 Localized swelling, mass and lump, left lower limb (principal)
CPT/HCPCS: 76882

== ENCOUNTER → 2025-07-30 10:28 | Outpatient (CLI) | payer BC, SELFPAY ==
[2025-07-30 10:52] LABS: Add Manual Diff / Slide Review NO; Hematocrit 39.8 % (36-46); Hemoglobin 13.6 g/dL (12.0-16.0); Lymphocytes Absolute Auto 1400 /uL (1100-4500); Mean Corpuscular HGB Conc 34.0 % (30-36); Mean Corpuscular Hemoglobin 29.2 PG (26-34); Mean Corpuscular Volume 85.8 fL (80-100); Platelet Count 277 X10^3/uL (150-400)
[2025-07-30 12:18] LABS: Alanine Aminotransferase 22 IU/L (<35); Albumin 4.2 g/dL (3.5-5.0); Albumin Globulin Ratio 1.4 (1.0-2.8); Alkaline Phosphatase 100 U/L (38-126); Blood Urea Nitrogen 10 mg/dL (7-17); Calcium 9.2 mg/dL (8.4-10.2); Carbon Dioxide 23 mmol/L (22-32); Chloride 104 mmol/L (98-107); Cholesterol 323 mg/dL (140-199); Estimated Glomerular Filt Rate > 60 mL/min (>60); Globulin 3.1 g/dL (1.7-4.1); Glucose 96 mg/dL (70-99); HDL Cholesterol 69 mg/dL (40-60); HEMOLYSIS < 15 (0-50); Potassium 4.0 mmol/L (3.4-5.1); Sodium 135 mmol/L (137-145); Total Protein 7.3 g/dL (6.3-8.2); Triglycerides 97 mg/dL (35-150)
[2025-07-30 12:48] LABS: TSH w/ Reflex to FT4 0.45 uIU/mL (0.47-4.68)
[2025-07-30 13:24] LABS: Free T4, Direct Thyroxine 1.56 ng/dL (0.78-2.19)
== END ==
PROVIDERS: PCP Family Medicine; Referring Provider Family Medicine; Visit Provider Family Medicine
DX: E78.5 Hyperlipidemia, unspecified (principal); D50.9 Iron deficiency anemia, unspecified; E04.9 Nontoxic goiter, unspecified
CPT/HCPCS: 36415; 80053; 80061; 84439; 84443; 85025